=== PATIENT | female | born 1980 | race Caucasian/White ===

== ENCOUNTER 2017-08-02 00:23 | Outpatient (CLI) | END 2017-08-02 03:00 | disposition home or self-care (01) ==

== ENCOUNTER 2017-08-02 03:16 | Emergency (ER) | END 2017-08-03 10:14 | disposition home or self-care (01) ==

== ENCOUNTER 2018-05-31 18:58 | Emergency (ER) | payer SELFPAY ==
[~2018-05-31 18:58] MED LIST: FLUO10CA26 PO; LORA1TAB PO; PRENAT PO
== END 2018-05-31 19:16 | disposition left against medical advice (07) ==
LOC: E/R 18:58
DX: Z53.21 Procedure and treatment not carried out due to patient leaving prior to being seen by health care provider (principal)